=== PATIENT | female | born 1945 | race Two or more races ===

== ENCOUNTER 2016-12-09 07:29 | Emergency (ER) | payer OTHER ==
[2016-12-09 07:49] VITALS: BP 118/67
--- NOTE | 2016-12-09 08:11 | UC ---
Respiratory Complaint HPI - HPI Summary HPI Summary: Cough w/ "bad tasting mucus" x2 weeks. Pt developed fever, chills, and left burning flank pain yesterday. Denies any other ENT, respiratory, or urinary sx. SHe has asthma and had same sx 2 mo ago and went to [facility] and had URI, took antibiotics and sx resolved and now returned. She has been coughing and now having muscle spasms right lower back. Pain does not radiate to groin. NO urinary Sx no dysuria. No hematuria. No blood in stool. No kidney stones in past. 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 Negative: Pleuritic Chest Pain, Hemoptysis, Calf Pain, Edema, Hoarseness, Sinus Discomfort - Risk Factors Pulmonary Embolism Risk Factors: Negative - Allergies/Home Medications Allergies/Adverse Reactions: Allergies Allergy/AdvReac Type Severity Reaction Status Date / Time NOVACAINE Allergy Rash Uncoded 12/09/16 07:37 Home Medications: Home Medications Cetirizine* [ZyrTEC 10 MG TAB*] 10 mg PO BEDTIME 12/09/16 [History Confirmed 09/26] Fluticas/Salmet 230/21 HFA(NF) [Advair HFA 23O/21 (NF)] 2 puff INH BID 12/09/16 [History Confirmed 12/09/16] Ibuprofen TAB* [Advil TAB*] 200 mg PO Q6H PRN 12/09/16 [History Confirmed ] PMH/Surg Hx/FS Hx/Imm Hx Previously Healthy: Yes Endocrine History Of: Reports: Thyroid Disease - Partial Thyroidectomy Respiratory History Of: Reports: Asthma, Bronchitis - Surgical History Surgical History: Yes Surgery Procedure, Year, and Place: Partial Thyroidectomy - Family History Known Family History: Positive: Respiratory Disease Negative: Hypertension - Social History Occupation: Unemployed Lives: With Family Alcohol Use: None Substance Use Type: None Smoking Status (MU): Never Smoked Tobacco - Immunization History Most Recent Influenza Vaccination: [id number] Review of Systems Constitutional: Fever - 100.2 last night, Chills, Fatigue Skin: Negative Eyes: Negative ENT: Negative Respiratory: Cough - productive Cardiovascular: Negative Gastrointestinal: Negative Genitourinary: Negative Motor: Negative Neurovascular: Negative Musculoskeletal: Arthralgia Neurological: Negative Psychological: Negative All Other Systems Reviewed And Are Negative: Yes Physical Exam Triage Information Reviewed: Yes Appearance: Well-Appearing, Well-Nourished Vital Signs: Initial Vital Signs Temp 98.8 F 12/09/16 07:40 Pulse 68 12/09/16 07:40 Resp 16 12/09/16 07:40 BP 118/67 12/09/16 07:40 Pulse Ox 97 12/09/16 07:40 Vital Signs Reviewed: Yes Eye Exam: Normal ENT Exam: Normal Dental Exam: Normal Neck exam: Normal Neck: Positive: 1 Respiratory Exam: Normal Cardiovascular Exam: Normal Abdominal Exam: Normal Abdomen Description: Negative: CVA Tenderness (R), CVA Tenderness (L) Musculoskeletal: Positive: Strength Intact, Other: - right lower lumbar spine paraspinals L3-4 with spasms with mild palpation . no sp tenderness. no step offs.. Negative: ROM Intact Neurological Exam: Normal Psychological Exam: Normal Skin Exam: Normal UC Diagnostic Evaluation - Laboratory O2 Sat by Pulse Oximetry: 97 Respiratory Course/Dx - Course Course Of Treatment: Patient and daughter declined any diagnostics. They declined U/A and Chest Xray or any further imaging. They state this feels the same it was 2 mo ago with Pulm and they are aware of risks of not having proper eval like pneumonia, broken ribs, abscess, respiratory distress , . We will treat at this time and they agree to f/u with pulm and will have imaging from them if needed. Pt and daughter aware of SE of antibiotics including arrythmia, tendon concerns, hepatitis, c diff and want to start meds at this time. - Differential Dx/Diagnosis Differential Diagnosis/HQI/PQRI: Asthma, Bronchitis, Pulmonary Edema, Lower Resp Infection, Pulmonary Embolism, Tuberculosis Provider Diagnoses: Athmatic Bronchitis with lumbar spine muscle spasms Discharge - Discharge Plan Condition: Fair Disposition: HOME Prescriptions: Azithromyxin REBA (NF) [Z-Reba (Zithromax) 250 mg tabs #6] 2 tab PO .TODAY, THEN 1 DAILY #6 tab Cyclobenzaprine (NF) [Cyclobenzaprine 5 MG (NF)] 5 mg PO BID PRN #14 tab PRN Reason: Spasms Patient Education Materials: Acute Bronchitis (ED), Muscle Spasm (ED) Referrals: Christy Capps MD [Primary Care Provider] - 3 Days (Make follow up appt with Pulmonary physician) Additional Instructions: Please do not take atorvastatin while taking the azithromycin
== END 2016-12-09 08:34 | disposition home or self-care (01) ==
LOC: UCCORT 07:29
DX: J45.909 Unspecified asthma, uncomplicated (principal); M62.830 Muscle spasm of back; Z88.4 Allergy status to anesthetic agent
CPT/HCPCS: 99212; G0463

== ENCOUNTER 2017-04-11 18:38 | Emergency (ER) | payer OTHER ==
[2017-04-11 19:04] VITALS: BP 127/65
--- NOTE | 2017-04-11 19:40 | UC ---
Skin Complaint HPI - HPI Summary HPI Summary: pt is accompanied by daughter. Daughter reports that pt tripped and cut left lower extremity on metal pipe at home. Pt was seen in [facility] ER and had 17 sutures placed in left lower leg laceration. Pt presnts today with c/o increased redness, swelling and darkening of skin surrounding wound. 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 Hx Last Menstrual Period: n/a ?: No Onset/Duration: Gradual Onset, Lasting Days - 2, Worse Since - onset Skin Exposure Onset/Duration: Days Ago Timing: Constant Onset Severity: Mild Current Severity: Moderate Location: Discrete - left lower extremity Character: Swelling, Redness, Painful Aggravating: Touch Alleviating: Nothing Associated Signs & Symptoms: Positive: Tenderness Related History: Trauma - laceration - Allergy/Home Medications Allergies/Adverse Reactions: Allergies Allergy/AdvReac Type Severity Reaction Status Date / Time alternaria aspergillus Allergy Unknown Uncoded 04/11/17 19:08 helminthospo Reaction Details helminthosporia, hormodendrum Allergy Unknown Uncoded 04/11/17 19:08 Reaction Details NOVACAINE Allergy Rash Uncoded 04/11/17 19:04 penicillium Allergy Swelling Uncoded 04/11/17 19:08 Of Face,Lips,& Throat Home Medications: Home Medications Calcium 250 mg PO DAILY 04/11/17 [History Confirmed 04/11/17] Review of Systems Constitutional: Negative Skin: Bruising, Other - laceration with suture repair, erythema, necrosis, Eyes: Negative ENT: Negative Respiratory: Negative Cardiovascular: Negative Gastrointestinal: Negative Genitourinary: Negative Motor: Decreased ROM - left lower extremity secondaryto pain Neurovascular: Negative Musculoskeletal: Myalgia - left lower extremity Neurological: Negative Psychological: Negative All Other Systems Reviewed And Are Negative: Yes PMH/Surg Hx/FS Hx/Imm Hx Previously Healthy: No - see pmh Cardiovascular History: Other - dyslipidemia Other Cardiovascular History: dyslipidemia Respiratory History: Asthma - Surgical History Surgical History: Yes Surgery Procedure, Year, and Place: Partial Thyroidectomy - Family History Known Family History: Positive: Respiratory Disease Negative: Hypertension - Social History Occupation: Retired Lives: With Family Alcohol Use: None Substance Use Type: None Smoking Status (MU): Never Smoked Tobacco Have You Smoked in the Last Year: No - Immunization History Most Recent Influenza Vaccination: [id number] Most Recent Tetanus Shot: 04/08/17 Physical Exam Triage Information Reviewed: Yes Appearance: Pain Distress - mild Vital Signs: Initial Vital Signs Temp 98.5 F 04/11/17 18:55 Pulse 72 04/11/17 18:55 Resp 12 04/11/17 18:55 BP 127/65 04/11/17 18:55 Vital Signs Reviewed: Yes Eye Exam: Normal Neck exam: Normal Respiratory Exam: Normal Musculoskeletal: Positive: Edema @ - left lower extremity, exam was limited due to pt c/o pain with palpation at wound site. Neurological Exam: Normal Psychological Exam: Normal Psychological: Positive: Age Appropriate Behavior Skin Exam: Other - laceration site with ~ 17 interupted sutures in tact with moderate swelling, erythema, bright red bloos ozing thorugh intact sutures, the laceration shaped as a right angle, measuring 5cm on one side and 3 cm on upper side. central of the laceration is necrotic appearin gskin, that appears to be pulling away from edges of sutures. Course/Dx - Course Course Of Treatment: I spoke with the pt and pt's daughter recommending that the sutures be removed and pt be placed on antibiotics and need for further evaluation and testing. I discussed my concern for worsening infection and the need for further evaluation and treatment pt and pt's daughter verbalized understanding and agreed to plan of care. - Differential Diagnoses - Skin Complaint Differential Diagnoses: Abscess, Cellulitis, Other - sepsis - Diagnoses Provider Diagnoses: infected wound. risk for sepsis - Physician Notification/Consults Discussed Patient Care With: Dr. Jose A Iglesias. - accepted pt at [facility] Time Discussed With Above Provider: 19:45 Instructed by Provider To: Other - transfer to higher level of care via private car Discharge - Discharge Plan Condition: Stable Disposition: TRANS [facility] Patient Education Materials: Wound Infection (ED) Referrals: Christy Capps MD [Primary Care Provider] - Additional Instructions: IT IS RECOMMENDED THAT YOU GO TO THE CLOSEST ER FOR FURTHER TESTING, EVALUATION AND TREATMENT. PLEASE NOTE THAT YOUR CONDITION COULD WORSEN IF YOU DO NOT FOLLOW THIS RECOMMENDATION
== END 2017-04-11 20:06 | disposition short-term general hospital (02) ==
LOC: UCCORT 18:38
DX: S81.812S Laceration without foreign body, left lower leg, sequela (principal); W01.198S Fall on same level from slipping, tripping and stumbling with subsequent striking against other object, sequela; Y92.009 Unspecified place in unspecified non-institutional (private) residence as the place of occurrence of the external cause; E78.5 Hyperlipidemia, unspecified; J45.909 Unspecified asthma, uncomplicated; Z88.4 Allergy status to anesthetic agent; Z88.0 Allergy status to penicillin
CPT/HCPCS: 99212; G0463

== ENCOUNTER 2017-05-18 14:55 | Emergency (ER) | payer OTHER ==
[2017-05-18 16:46] VITALS: BP 126/81
--- NOTE | 2017-05-18 19:17 | UC ---
Skin Complaint HPI - HPI Summary HPI Summary: Pt presents with c/o left lower leg puritic skin and erythema. Pt has been going to wound care and began applying medihoney and began noticing erythema and puritis soon after applying the ointment. 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 Hx Last Menstrual Period: n/a ?: No Onset/Duration: Gradual Onset, Lasting Days Skin Exposure Onset/Duration: Days Ago Timing: Constant Onset Severity: Mild Current Severity: Mild Pain Intensity: 0 Pain Scale Used: 0-10 Numeric Location: Discrete - left lower leg Character: Pruritus, Redness Alleviating: Unknown Associated Signs & Symptoms: Positive: Tenderness Related History: Recent change in medication - topical lotion - Allergy/Home Medications Allergies/Adverse Reactions: Allergies Allergy/AdvReac Type Severity Reaction Status Date / Time Penicillins Allergy Positive Verified 05/18/17 16:44 Allergy Testing Procaine [From Novocain] Allergy "Redness" Verified 05/18/17 16:44 Home Medications: Home Medications Hydrocortisone 1% Oint(NF) [Hydrocortisone 1% Oint (NF)] 1 applic TOPICAL DAILY 05/18/17 [History Confirmed 05/18/17] Wound Dressings [Medihoney Wound/Burn] 1 gel TOPICAL DAILY 05/18/17 [History Confirmed 05/18/17] Review of Systems Constitutional: Negative Skin: Rash, Other - healing wound, left lateral lower leg, Eyes: Negative ENT: Negative Respiratory: Negative Cardiovascular: Negative Gastrointestinal: Negative Genitourinary: Negative Motor: Negative Neurovascular: Negative Musculoskeletal: Negative Neurological: Negative Psychological: Negative Is Patient Immunocompromised?: No All Other Systems Reviewed And Are Negative: Yes PMH/Surg Hx/FS Hx/Imm Hx Previously Healthy: Yes - Surgical History Surgical History: Yes Surgery Procedure, Year, and Place: Partial Thyroidectomy - Family History Known Family History: Positive: Respiratory Disease Negative: Hypertension - Social History Occupation: Retired Lives: With Family Alcohol Use: None Substance Use Type: None Smoking Status (MU): Never Smoked Tobacco Have You Smoked in the Last Year: No - Immunization History Most Recent Influenza Vaccination: Not the 2016/2017 Season Most Recent Tetanus Shot: 04/08/17 Physical Exam Triage Information Reviewed: Yes Appearance: Well-Appearing Vital Signs: Initial Vital Signs Temp 98.4 F 05/18/17 16:36 Pulse 78 05/18/17 16:36 Resp 16 05/18/17 16:36 BP 126/81 05/18/17 16:36 Pulse Ox 98 05/18/17 16:36 Vital Signs Reviewed: Yes Eye Exam: Normal ENT Exam: Normal Neck exam: Normal Respiratory: Positive: No respiratory distress Musculoskeletal Exam: Normal Neurological Exam: Normal Psychological Exam: Normal Skin Exam: Other - 16 cm X 13 cm erythematous area surrounding granualted wound measuring 3cm X 3 cm circular wound. Course/Dx - Course Course Of Treatment: I discussed with the pt the need to discontinue the use of the ointment that that pt recently began using and to follow up with wound care porvider as soon as possible. - Differential Diagnoses - Skin Complaint Differential Diagnoses: Contact Dermatitis - Diagnoses Provider Diagnoses: contact dermatitis. healing wound Discharge - Discharge Plan Condition: Stable Disposition: HOME Prescriptions: Diphenhydramine HCl [Benadryl Allergy Children 12.5 MG CHEW] 12.5 mg PO BEDTIME #20 tab Loratadine [Claritin Reditabs 10 MG] 10 mg PO DAILY #20 tab Patient Education Materials: Contact Dermatitis (ED) Referrals: Christy Capps MD [Primary Care Provider] - Additional Instructions: Please follow up with wound care as scheduled or return to clinic as needed. Please discontinue the mediHoney and resume the silvadene.
== END 2017-05-18 17:32 | disposition home or self-care (01) ==
LOC: UCCORT 14:55
DX: S81.802D Unspecified open wound, left lower leg, subsequent encounter (principal); L24.4 Irritant contact dermatitis due to drugs in contact with skin; T49.8X5A Adverse effect of other topical agents, initial encounter; X58.XXXD Exposure to other specified factors, subsequent encounter; Y92.9 Unspecified place or not applicable; Z88.4 Allergy status to anesthetic agent; Z88.0 Allergy status to penicillin
CPT/HCPCS: 99212; G0463